=== PATIENT | female | born 1950 | race Caucasian/White ===

== ENCOUNTER 2018-09-25 13:36 | Emergency (ER) | payer OTHER, SELFPAY ==
--- NOTE | 2018-09-25 14:04 | EKG ---
Test Date: 2018-09-25 Test Time: 13:58:16 Improvement Auditor: SKYE MEASUREMENT RESULTS: Intervals: Rate: 96 RI: 214 QRSD: 104 QT: 402 QTc: 507 [place]: P: 73 RI: 214 QRS: 32 T: 76 INTERPRETIVE STATEMENTS: Sinus rhythm with 1st degree AV block Abnormal ECG No previous ECG available for comparison Electronically Signed On 09-25-18 14:03:47 CDT by Matthias Ambriz
--- NOTE | 2018-09-25 14:06 | RAD REPORT ---
EXAM DESCRIPTION: CT - Ct Stroke Brain Wo Cont - 09/25/2018 1:56 pm CLINICAL HISTORY: APHASIA COMPARISON: None TECHNIQUE: Computed axial tomography of the head was obtained. All CT scans are performed using dose optimization technique as appropriate and may include automated exposure control or mA/KV adjustment according to patient size. FINDINGS: An intracranial bleed is not seen . The ventricles are normal in caliber. No extra-axial fluid collection is noted. Fluid within the sinuses/ mastoids is not seen. IMPRESSION: No acute intracranial abnormality is seen. If patient's symptoms persist MRI of the bra in would be recommended. Keisha Wray of the emergency room of the emergency room was notified at 345 p.m. September 25, 2018
[2018-09-25 14:08] LABS: Absolute Lymphocytes (CBC) 2.5 K/uL (0.7-4.9); Absolute Monocytes 0.5 K/uL (0.1-1.3); Absolute Neutrophil 2.6 K/uL (1.8-8.0); Basophils % 0.3 % (0-1.3); Eosinophils % 0.6 % (0-4.4); Hematocrit 37.7 % (36.0-45.0); Lymphocytes % 44.4 % (15.3-44.8); MPV 7.8 fL (7.6-11.3); RBC Red Blood Cell Count 4.24 M/uL (3.86-4.86)
--- NOTE | 2018-09-25 14:12 | RAD REPORT ---
EXAM DESCRIPTION: Alda Angio09/25/2018 1:56 pm CLINICAL HISTORY: APHASIA COMPARISON: None TECHNIQUE: 50 cc Isovue 370 was administered intravenously. 3D MIP reconstruction performed All CT scans are performed using dose optimization technique as appropriate and may include automated exposure control or mA/KV adjustment according to patient size. FINDINGS: The right and left common carotid arteries unremarkable Calcification the right carotid bulb resulting in an approximately 45% stenosis. Calcification the left carotid bulb results in an approximately 30% stenosis Right and left internal carotid arteries unremarkable Vertebral arteries are codominant without an abnormality IMPRESSION: Mild stenosis involving the carotid bulbs. NASCET criteria used. Mild 0-49% stenosis Moderate 50-69% stenosis Severe 70-99% stenosis
--- NOTE | 2018-09-25 14:15 | RAD REPORT ---
EXAM DESCRIPTION: CTHead angio09/25/2018 1:56 pm CLINICAL HISTORY: APHASIA COMPARISON: None TECHNIQUE: CT angiogram of the head was obtained. 3D MIPS reconstruction performed. All CT scans are performed using dose optimization technique as appropriate and may include automated exposure control or mA/KV adjustment according to patient size. FINDINGS: The basilar, internal carotid, anterior cerebral, middle cerebral and posterior cerebral a rteries are normal caliber. An aneurysm is not seen. A significant stenosis is not noted. IMPRESSION: Unremarkable CT angiogram head.
[2018-09-25 14:18] LABS: Protime INR 0.98
[2018-09-25 14:25] LABS: ALT/SGPT 25 U/L (12-78); AST/SGOT 16 U/L (15-37); Albumin 3.4 g/dL (3.4-5.0); Alkaline Phosphatase 99 U/L (45-117); BUN Blood Urea Nitrogen 20 mg/dL (7-18); Bicarbonate 17 mmol/L (21-32); Bilirubin Total 0.7 mg/dL (0.2-1.0); Glucose Level 145 mg/dL (74-106); Potassium 3.1 mmol/L (3.5-5.1); Protein, Total 6.2 g/dL (6.4-8.2); Sodium Level 138 mmol/L (136-145); Troponin (Emerg Dept Use Only) < 0.02 ng/mL (0.0-0.045)
--- NOTE | 2018-09-25 14:25 | RAD REPORT ---
EXAM DESCRIPTION: Jessi Single View09/25/2018 2:08 pm CLINICAL HISTORY: Aphasia COMPARISON: none FINDINGS: The lungs appear clear of acute infiltrate. The heart is normal size IMPRESSION: No acute abnormalities displayed
[2018-09-25] MEDS ORDERED: ALTEPLASE 0 ML IV ONE (15:04)
[2018-09-25] MEDS ORDERED: IPRATROPIUM BROM 0.5MG/2.5ML ONE (15:34)
[2018-09-25] MEDS ORDERED: ALBUTEROL 2.5 MG/3 ML NEB SOL ONE (15:34)
[2018-09-25] MEDS ORDERED: DEXAMETHASONE 10 MG/ML VIAL ONE (15:34)
[2018-09-25 15:38] LABS: Barbiturates NEGATIVE (NEGATIVE); Benzodiazepines NEGATIVE (NEGATIVE); Cocaine NEGATIVE (NEGATIVE); METHAMPHETAM NEGATIVE (NEGATIVE); Methadone NEGATIVE (NEGATIVE); Opiates NEGATIVE (NEGATIVE); Phencyclidine NEGATIVE (NEGATIVE); THC Cannibis NEGATIVE (NEGATIVE)
[2018-09-25 15:42] LABS: Arterial Blood Carboxyhemoglob 0.9 % (0-1.5); Blood Gas Oxyhemoglobin 98.1 % (94-97); Blood O2 Saturation 99.8 % (92-98.5)
[2018-09-25 16:18] LABS: Urine Blood TRACE (NEG); Urine Glucose NEGATIVE (NEG); Urine Protein NEGATIVE (NEG); Urine Specific Gravity 1.015 (1.005-1.030)
--- NOTE | 2018-09-25 16:48 | EDPHYS ---
Physician Documentation [facility] Name: Janny Palencia Age: 68 yrs Sex: Female : 1950 Arrival Date: 09/25/2018 Time: 13:36 Bed 6 Private MD: ED Physician Jimmy Azul HPI: 09/25 14:59 This 68 yrs old Female presents to ER via EMS with complaints of S/S of ps1 Possible Stroke. 14:59 [place] and complained of headache, confusion, aphasia, and ps1 bilateral hemianopsia. Her LKN 1315. Not on blood thinners. Emergently brought to CT. Hx of HTN and HLD. . Historical: - Allergies: 13:40 Unable to obtain; aa5 - PMHx: 13:40 Hyperlipidemia; Hypertension; aa5 - PSHx: 13:40 Unable to obtain; aa5 - Immunization history:: Adult Immunizations unknown. - Social history:: Smoking status: unknown. - Ebola Screening: : Unable to complete screening because. ROS: 14:59 Unable to obtain ROS due to altered mental status. ps1 Exam: 14:59 Radiologist reports: negative CT, CTA head and neck of significant stenosis. ps1 14:59 ENT: Nares patent. No nasal discharge, no septal abnormalities noted. Tympanic membranes are normal and external auditory canals are clear. Oropharynx with no redness, swelling, or masses, exudates, or evidence of obstruction, uvula midline. Mucous membranes moist. Chest/axilla: Normal chest wall appearance and motion. Nontender with no deformity. No lesions are appreciated. Cardiovascular: Regular rate and rhythm. No gallops, murmurs, or rubs. Normal PMI, no JVD. No pulse deficits. 14:59 Abdomen/GI: Soft, non-tender, with normal bowel sounds. No distension or tympany. No guarding or rebound. No evidence of tenderness throughout. Skin: Warm, dry with normal turgor. Normal color with no rashes, no lesions, and no evidence of cellulitis. 14:59 Constitutional: The patient appears alert. 14:59 Head/face: 14:59 Eyes: Visual medellin: bilateral hemianopsia, does not respond to confrontation. . 14:59 Respiratory: mild respiratory distress is noted, Respirations: prolonged exhalation, that is moderate, Breath sounds: are clear throughout. 14:59 Neuro: Orientation: Not oriented to person, place, time, situation, Mentation: confused. Vital Signs: 13:55 Weight 72.57 kg; Height 5 ft. 6 in. (167.64 cm); hj 13:55 BP 154 / 74; Pulse 91; Resp 16 S; Pulse Ox 100% on R/A; aa5 13:58 Temp 98.6(A); aa5 14:15 BP 155 / 88; Pulse 93; Resp 24 S; Pulse Ox 100% on R/A; aa5 14:30 BP 161 / 77; Pulse 97; Resp 26 S; Pulse Ox 100% on R/A; aa5 14:59 BP 160 / 78; Pulse 93; Resp 30 S; Pulse Ox 100% on R/A; aa5 16:30 BP 176 / 80; Pulse 106; Resp 18 S; Temp 98.7(TE); Pulse Ox 100% on R/A; aa5 17:30 BP 161 / 63; Pulse 99; Resp 20 S; Pulse Ox 100% on R/A; aa5 18:30 BP 159 / 69; Pulse 97; Resp 18 S; Temp 98.0(TE); Pulse Ox 100% on R/A; Pain 0/10; aa5 13:55 Body Mass Index 25.82 (72.57 kg, 167.64 cm) NIH Stroke Scale Scores: 14:00 NIHSS Score: 10 aa5 17:29 NIHSS Score: 12 aa5 17:40 NIHSS Score: 0 aa5 18:00 NIHSS Score: 0 aa5 MDM: 13:55 Patient medically screened. ps1 09/25 13:38 Order name: Troponin (emerg Dept Use Only) ps1 09/25 13:38 Order name: UDS; Complete Time: 16:12 ps1 09/25 13:38 Order name: CBC with Diff; Complete Time: 14:12 09/25 13:38 Order name: Protime (+inr); Complete Time: 14:39 09/25 13:38 Order name: Ptt, Activated; Complete Time: 14:39 ps1 09/25 13:38 Order name: CMP; Complete Time: 14:39 ps1 09/25 13:38 Order name: CT Stroke Brain w/o Contrast; Complete Time: 14:12 09/25 13:46 Order name: Troponin (Emerg Dept Use Only); Complete Time: 14:39 EDMS /12 15:14 Order name: ABG; Complete Time: 16:12 ps1 /12 15:19 Order name: Urine Dipstick--Ancillary (enter results); Complete Time: 16:35 bd 09/25 16:12 Order name: Acetaminophen ps1 09/25 16:12 Order name: ETOH Level; Complete Time: 17:10 ps1 09/25 16:12 Order name: Salicylate; Complete Time: 18:03 ps1 /12 16:14 Order name: Acetaminophen Level; Complete Time: 18:03 EDMS 09/25 13:38 Order name: Stroke CXR 1 View; Complete Time: 14:39 ps1 / 13:38 Order name: EKG; Complete Time: 13:48 ps1 / 13:38 Order name: Accucheck; Complete Time: 14:02 ps1 09/25 13:38 Order name: Cardiac monitoring; Complete Time: 14:02 ps1 09/25 13:38 Order name: EKG - Nurse/Tech; Complete Time: 13:55 ps1 09/25 13:38 Order name: IV Saline Lock; Complete Time: 14:02 ps1 12 13:38 Order name: Labs collected and sent; Complete Time: 14:02 ps1 09/25 13:38 Order name: NPO; Complete Time: 13:55 ps1 /12 13:38 Order name: O2 Per Protocol; Complete Time: 13:55 ps1 /12 13:38 Order name: O2 Sat Monitoring; Complete Time: 13:55 ps1 12 13:38 Order name: Stroke Swallow Screen; Complete Time: 14:02 ps1 09/25 13:42 Order name: Neck Angio CT; Complete Time: 14:39 ps1 12 13:52 Order name: Head angio; Complete Time: 14:39 EDMS /12 14:08 Order name: Straight Cath - Urine; Complete Time: 14:10 aa5 Administered Medications: 15:18 Drug: DuoNeb (3:1) (2.5 mg - 0.5 mg) 3 ml Route: Nebulizer; aa5 15:30 Follow up: Response: No adverse reaction aa5 15:18 Drug: Decadron - Dexamethasone 10 mg Route: IVP; Site: right antecubital; aa5 15:30 Follow up: Response: No adverse reaction aa5 Point of Care Testing: Blood Glucose: 13:57 Blood Glucose: 167 mg/dL; aa5 Ranges: Critical Glucose Levels:Adult <50 mg/dl or >400 mg/dl <40 mg/dl or >180 mg/dl Disposition: 09/25/18 16:46 Transfer ordered to [facility]. Diagnosis are Encephalopathy, unspecified, Visual disturbances, Alkalosis. - Reason for transfer: Higher level of care. - Accepting physician is Alexander. - Condition is Critical. - Problem is new. - Symptoms are unchanged. NIH Stroke Scale - NIH Stroke Score Date: 09/25/2018 Time: 14:00 Total Score = 10 1a. Level of Consciousness (LOC) - 0(Alert) 1b. Level of Consciousness (LOC) (Year \T\ Age) - 2(Neither) 1c. LOC Commands (Open \T\ Closes Eyes/Service Center Supervisor) - 0(Both) 2. Best Gaze (Lateral Gaze Paresis) - 0(Normal) 3. Visual Field Loss - 3(Bilateral hemianopia) 4. Facial Palsy - 0(Normal) 5a. Left Arm: Motor (10-second hold) - 0(No drift) 5b. Right Arm: Motor (10-second hold) - 0(No drift) 6a. Left Leg: Motor (5-second hold - always test supine) - 0(No drift) 6b. Right Leg: Motor (5-second hold - always test supine) - 0(No drift) 7. Limb Ataxia (finger/nose \T\ heel/hoskins - test with eyes open) - 0(Absent) 8. Sensory Loss (pinprick arms/legs/face) - 0(Normal) 9. Best Language: Aphasia (description/naming/reading) - 3(Mute, global aphasia) 10. Dysarthria (speech clarity - read or repeat words) - 2(Severe) 11. Extinction and Inattention (visual/tactile/auditory/spatial/personal) - 0(No abnormality) Initials: aa5 NIH Stroke Scale - NIH Stroke Score Date: 09/25/2018 Time: 17:29 Total Score = 12 1a. Level of Consciousness (LOC) - 0(Alert) 1b. Level of Consciousness (LOC) (Year \T\ Age) - 2(Neither) 1c. LOC Commands (Open \T\ Closes Eyes/Service Center Supervisor) - 2(Neither) 2. Best Gaze (Lateral Gaze Paresis) - 0(Normal) 3. Visual Field Loss - 3(Bilateral hemianopia) 4. Facial Palsy - 0(Normal) 5a. Left Arm: Motor (10-second hold) - 0(No drift) 5b. Right Arm: Motor (10-second hold) - 0(No drift) 6a. Left Leg: Motor (5-second hold - always test supine) - 0(No drift) 6b. Right Leg: Motor (5-second hold - always test supine) - 0(No drift) 7. Limb Ataxia (finger/nose \T\ heel/hoskins - test with eyes open) - 0(Absent) 8. Sensory Loss (pinprick arms/legs/face) - 0(Normal) 9. Best Language: Aphasia (description/naming/reading) - 3(Mute, global aphasia) 10. Dysarthria (speech clarity - read or repeat words) - 2(Severe) 11. Extinction and Inattention (visual/tactile/auditory/spatial/personal) - 0(No abnormality) Initials: aa5 NIH Stroke Scale - NIH Stroke Score Date: 09/25/2018 Time: 17:40 Total Score = 0 1a. Level of Consciousness (LOC) - 0(Alert) 1b. Level of Consciousness (LOC) (Year \T\ Age) - 0(Both) 1c. LOC Commands (Open \T\ Closes Eyes/Service Center Supervisor) - 0(Both) 2. Best Gaze (Lateral Gaze Paresis) - 0(Normal) 3. Visual Field Loss - 0(No visual loss) 4. Facial Palsy - 0(Normal) 5a. Left Arm: Motor (10-second hold) - 0(No drift) 5b. Right Arm: Motor (10-second hold) - 0(No drift) 6a. Left Leg: Motor (5-second hold - always test supine) - 0(No drift) 6b. Right Leg: Motor (5-second hold - always test supine) - 0(No drift) 7. Limb Ataxia (finger/nose \T\ heel/hoskins - test with eyes open) - 0(Absent) 8. Sensory Loss (pinprick arms/legs/face) - 0(Normal) 9. Best Language: Aphasia (description/naming/reading) - 0(No aphasia) 10. Dysarthria (speech clarity - read or repeat words) - 0(Normal) 11. Extinction and Inattention (visual/tactile/auditory/spatial/personal) - 0(No abnormality) Initials: aa5 NIH Stroke Scale - NIH Stroke Score Date: 09/25/2018 Time: 18:00 Total Score = 0 1a. Level of Consciousness (LOC) - 0(Alert) 1b. Level of Consciousness (LOC) (Year \T\ Age) - 0(Both) 1c. LOC Commands (Open \T\ Closes Eyes/Service Center Supervisor) - 0(Both) 2. Best Gaze (Lateral Gaze Paresis) - 0(Normal) 3. Visual Field Loss - 0(No visual loss) 4. Facial Palsy - 0(Normal) 5a. Left Arm: Motor (10-second hold) - 0(No drift) 5b. Right Arm: Motor (10-second hold) - 0(No drift) 6a. Left Leg: Motor (5-second hold - always test supine) - 0(No drift) 6b. Right Leg: Motor (5-second hold - always test supine) - 0(No drift) 7. Limb Ataxia (finger/nose \T\ heel/hoskins - test with eyes open) - 0(Absent) 8. Sensory Loss (pinprick arms/legs/face) - 0(Normal) 9. Best Language: Aphasia (description/naming/reading) - 0(No aphasia) 10. Dysarthria (speech clarity - read or repeat words) - 0(Normal) 11. Extinction and Inattention (visual/tactile/auditory/spatial/personal) - 0(No abnormality) Initials: aa5 Signatures: Dispatcher [employer] [facility] Sendy Smith RN RN aa5 Jimmy Azul MD MD ps1 Corrections: (The following items were deleted from the chart) 19:15 16:46 09/25/2018 16:46 Transfer ordered to [facility]. Diagnosis is aa5 Encephalopathy, unspecified; Visual disturbances; Alkalosis. Reason for transfer: Higher level of care. Accepting physician is [place]. Condition is Critical. Problem is new. Symptoms are unchanged. ps1
--- NOTE | 2018-09-25 16:48 | ER ---
Nurse's Notes [facility] Name: Janny Palencia Age: 68 yrs Sex: Female : 1950 Arrival Date: 09/25/2018 Time: 13:36 Bed 6 Private MD: Diagnosis: Encephalopathy, unspecified;Visual disturbances;Alkalosis Presentation: 09/25 13:36 Presenting complaint: EMS states: she was walking 20 mins ASSESSOR, when suddenly she lost hj her vision of both here eyes and become altered; pt is A\\T\\O x 1 on triage holding a wet piece of paper not responding to questions; BGL- 121; BP 190/70; tachy and hyperventilating;. Transition of care: patient was not received from another setting of care. An acute neurological deficit is present. Onset of symptoms was September 25, 2018. Risk Assessment: Do you want to hurt yourself or someone else? Patient reports no desire to harm self or others. Initial Sepsis Screen: Does the patient meet any 2 criteria? No. Patient's initial sepsis screen is negative. Does the patient have a suspected source of infection?. Care prior to arrival: IV initiated. 18 GA, in the right antecubital area, Glucose check: 121. 13:36 Method Of Arrival: EMS: [facility] 13:36 Acuity: PINA 2 hj Triage Assessment: 14:00 The onset of the patients symptoms was September 25, 2018 at 13:15. aa5 Stroke Activation: Symptom onset < 3 hours Physician: Stroke Attending; Name: ; Notified At: ; Arrived At: Physician: Chief Stroke Resident; Name: ; Notified At: ; Arrived At: Physician: Stroke Resident; Name: ; Notified At: ; Arrived At: Physician: ED Attending; Name: ; Notified At: ; Arrived At: Physician: ED Resident; Name: ; Notified At: ; Arrived At: Historical: - Allergies: 13:40 Unable to obtain; aa5 - PMHx: 13:40 Hyperlipidemia; Hypertension; aa5 - PSHx: 13:40 Unable to obtain; aa5 - Immunization history:: Adult Immunizations unknown. - Social history:: Smoking status: unknown. - Ebola Screening: : Unable to complete screening because. Screenin:00 Abuse screen: unable to complete. Nutritional screening: No deficits noted. aa5 Tuberculosis screening: unable to complete. 17:00 Fall Risk IV access (20 points). Mental Status- Overestimates/Forgets Limitations (15 aa5 pts.). Total Torres Fall Scale indicates Low Risk Score (25-44 pts). Fall prevention measures have been instituted. Side Rails Up X 2 Placed close to Nursing Station. Assessment: 13:38 Reassessment: Pt taken to CT via stretcher, accompanied by BLAINE Daniel. aa5 13:54 Reassessment: Pt back from CT scan via stretcher . aa5 13:54 VAN Scoring: Arm Drift: Patients demonstrates NO arm weakness. Patient is VAN Negative. aa5 13:54 General: Behavior is calm, cooperative. Pain: Unable to use pain scale. Does not appear aa5 to understand pain scale. Neuro: Level of Consciousness is awake, Pt is mute at this time, unable to answer questions, unable to follow-commands. Pupils are 4mm in size, found, and reactive to light. . Cardiovascular: Heart tones S1 S2 present Rhythm is regular. Respiratory: Airway is patent Respiratory effort is even, unlabored, Respiratory pattern is regular, symmetrical. GI: Abdomen is round Bowel sounds present X 4 quads. Abd is soft and non tender X 4 quads. : No signs and/or symptoms were reported regarding the genitourinary system. EENT: No signs and/or symptoms were reported regarding the EENT system. Derm: Skin is pink, warm \\T\\ dry. Musculoskeletal: Pt unable to follow commands, pt noted to be able to move all 4 extremities. 13:55 Patient has been NPO before screening. The patient is not alert and/or unable to follow aa5 commands. Bedside swallow screen discontinued. Patient kept NPO until cleared by Speech Therapy or Physician. Provider notified of bedside swallow screening results: Jimmy Azul MD. 13:56 Reassessment: Pt back from CT VIA stretcher. 13:56 Reassessment: Dr. Azul awaiting results of CT Angio. Two friends remain at bedside. ss 13:57 Reassessment: EKG completed by obstetrics tech . aa5 14:00 Reassessment: Pt's friend at bedside, pt's friend attempting to contact pt's family aa5 (brother and [id number]). Pt is not and has no children as reported by friend. . 14:00 Neuro: Level of Consciousness is awake, Pt is able to follow some commands. Pt remains aa5 mute at this time. . Stitch Bonding Machine Tender are weak on left Weakness in left leg(s) Facial symmetry appears normal. Respiratory: Airway is patent Respiratory effort is even, unlabored, Respiratory pattern is regular, symmetrical. Derm: Skin is pink, warm \\T\\ dry. 14:45 Reassessment: Dr. Azul consulting with Dr. Moreno (Neurologist) at this time . aa5 14:55 Reassessment: T-PA will not be administered per MD. aa5 15:00 Neuro: Level of Consciousness is awake, Pt is not following commands, pt mute at this aa5 time. . Cardiovascular: Rhythm is sinus rhythm. Respiratory: Airway is patent Respiratory effort is even, unlabored, Respiratory pattern is regular, symmetrical. Derm: Skin is pink, warm \\T\\ dry. 15:48 Reassessment: ABG completed by RT . aa5 15:55 Neuro: Level of Consciousness is awake, Pt mute at this time . Stitch Bonding Machine Tender are weak aa5 bilaterally Moves all extremities. Facial symmetry appears normal, Pupils are PERRLA. Cardiovascular: Rhythm is sinus rhythm. Respiratory: Airway is patent Respiratory effort is even, unlabored, Respiratory pattern is regular, symmetrical. Derm: Skin is pink, warm \\T\\ dry. 16:30 Neuro: Level of Consciousness is awake, Pt able to follow commands. Pt mute at this aa5 time . Stitch Bonding Machine Tender are equal bilaterally Moves all extremities. Facial symmetry appears normal, Pupils are PERRLA. Respiratory: Airway is patent Respiratory effort is even, unlabored, Respiratory pattern is regular, symmetrical. Derm: Skin is pink, warm \\T\\ dry. 17:35 Reassessment: Report given to BLAINE Roman at [facility] Neuro ICU. Awaiting EMS for transport. aa5 . 17:40 General: Appears comfortable, Behavior is calm, cooperative. Pain: Denies pain. Neuro: aa5 Level of Consciousness is awake, alert, obeys commands, Oriented to person, place, time, situation, Stitch Bonding Machine Tender are equal bilaterally Moves all extremities. Speech is normal, Facial symmetry appears normal, Pupils are PERRLA. Cardiovascular: Heart tones S1 S2 present Rhythm is regular. Respiratory: Airway is patent Respiratory effort is even, unlabored, Respiratory pattern is regular, symmetrical. Derm: Skin is pink, warm \\T\\ dry. 17:40 Reassessment: Pt's family states "she just started talking as soon as you walked in" . aa5 18:00 Reassessment: Patient is alert, oriented x 3, equal unlabored respirations, skin aa5 warm/dry/pink. 18:15 Reassessment: Pt's clothing, car keys, and silver watch was given to pt's family per aa5 pt's request. . 18:30 Neuro: Level of Consciousness is awake, alert, obeys commands, Oriented to person, aa5 place, time, situation, Stitch Bonding Machine Tender are equal bilaterally Moves all extremities. Speech is normal, Facial symmetry appears normal, Pupils are PERRLA. Respiratory: Airway is patent Respiratory effort is even, unlabored, Respiratory pattern is regular, symmetrical. Derm: Skin is pink, warm \\T\\ dry. 18:30 Reassessment: Awaiting EMS for transfer. . aa5 Vital Signs: 13:55 Weight 72.57 kg; Height 5 ft. 6 in. (167.64 cm); 13:55 BP 154 / 74; Pulse 91; Resp 16 S; Pulse Ox 100% on R/A; aa5 13:58 Temp 98.6(A); aa5 14:15 BP 155 / 88; Pulse 93; Resp 24 S; Pulse Ox 100% on R/A; aa5 14:30 BP 161 / 77; Pulse 97; Resp 26 S; Pulse Ox 100% on R/A; aa5 14:59 BP 160 / 78; Pulse 93; Resp 30 S; Pulse Ox 100% on R/A; aa5 16:30 BP 176 / 80; Pulse 106; Resp 18 S; Temp 98.7(TE); Pulse Ox 100% on R/A; aa5 17:30 BP 161 / 63; Pulse 99; Resp 20 S; Pulse Ox 100% on R/A; aa5 18:30 BP 159 / 69; Pulse 97; Resp 18 S; Temp 98.0(TE); Pulse Ox 100% on R/A; Pain 0/10; aa5 13:55 Body Mass Index 25.82 (72.57 kg, 167.64 cm) NIH Stroke Scale Scores: 14:00 NIHSS Score: 10 aa5 17:29 NIHSS Score: 12 aa5 17:40 NIHSS Score: 0 aa5 18:00 NIHSS Score: 0 aa5 ED Course: 13:36 Patient arrived in ED. aa5 13:36 Arm band placed on. hj 13:37 Jimmy Azul MD is Attending Physician. ps1 13:38 Sendy Smith, RN is Primary Nurse. aa5 13:54 Patient has correct armband on for positive identification. Placed in gown. Bed in low aa5 position. Side rails up X2. 13:55 Triage completed. hj 13:57 Maintain EMS IV. Dressing intact. Good blood return noted. Site clean \\T\\ dry. Gauge \\T\\ ss site: 18 gauge in R AC. IV is patent, is intact, with good blood return, Flushed right antecubital saline lock with 5 ml normal saline. 13:58 CT Stroke Brain w/o Contrast In Process Unspecified. EDMS 13:[address] In Process Unspecified. EDMS 13:58 Head angio In Process Unspecified. EDMS 14:01 EKG done, by obstetrics tech. reviewed by Jimmy Azul MD. sm3 14:09 Stroke CXR 1 View In Process Unspecified. EDMS 14:10 Straight cath inserted, using sterile technique, 16 Fr. Specimen obtained. Returned aa5 60cc returned. Patient tolerated well. 14:10 Inserted saline lock: 20 gauge in left forearm, using aseptic technique. ss 14:10 Patient maintains SpO2 saturation greater than 95% on room air. ss 18:[address] [facility], pt denied due to no icu beds. pt accepted to [facility]. bd 19:00 Patient transferred, IV remains in place. aa5 19:00 No provider procedures requiring assistance completed. aa5 Administered Medications: 15:18 Drug: DuoNeb (3:1) (2.5 mg - 0.5 mg) 3 ml Route: Nebulizer; aa5 15:30 Follow up: Response: No adverse reaction aa5 15:18 Drug: Decadron - Dexamethasone 10 mg Route: IVP; Site: right antecubital; aa5 15:30 Follow up: Response: No adverse reaction aa5 Point of Care Testing: Blood Glucose: 13:57 Blood Glucose: 167 mg/dL; aa5 Ranges: Outcome: 16:46 ER care complete, transfer ordered by . ps1 19:05 Transferred by ground EMS to [facility], Transfer form aa5 completed. X-rays sent w/ patient. Note: Report given to [facility] 19:05 Condition: stable 19:05 Discharge instructions given to patient, family, Instructed on the need for transfer, Demonstrated understanding of instructions. 19:15 Patient left the ED. aa5 NIH Stroke Scale - NIH Stroke Score Date: 09/25/2018 Time: 14:00 Total Score = 10 1a. Level of Consciousness (LOC) - 0(Alert) 1b. Level of Consciousness (LOC) (Year \\T\\ Age) - 2(Neither) 1c. LOC Commands (Open \\T\\ Closes Eyes/Manager Target) - 0(Both) 2. Best Gaze (Lateral Gaze Paresis) - 0(Normal) 3. Visual Field Loss - 3(Bilateral hemianopia) 4. Facial Palsy - 0(Normal) 5a. Left Arm: Motor (10-second hold) - 0(No drift) 5b. Right Arm: Motor (10-second hold) - 0(No drift) 6a. Left Leg: Motor (5-second hold - always test supine) - 0(No drift) 6b. Right Leg: Motor (5-second hold - always test supine) - 0(No drift) 7. Limb Ataxia (finger/nose \\T\\ heel/hoskins - test with eyes open) - 0(Absent) 8. Sensory Loss (pinprick arms/legs/face) - 0(Normal) 9. Best Language: Aphasia (description/naming/reading) - 3(Mute, global aphasia) 10. Dysarthria (speech clarity - read or repeat words) - 2(Severe) 11. Extinction and Inattention (visual/tactile/auditory/spatial/personal) - 0(No abnormality) Initials: aa5 NIH Stroke Scale - NIH Stroke Score Date: 09/25/2018 Time: 17:29 Total Score = 12 1a. Level of Consciousness (LOC) - 0(Alert) 1b. Level of Consciousness (LOC) (Year \\T\\ Age) - 2(Neither) 1c. LOC Commands (Open \\T\\ Closes Eyes/Manager Target) - 2(Neither) 2. Best Gaze (Lateral Gaze Paresis) - 0(Normal) 3. Visual Field Loss - 3(Bilateral hemianopia) 4. Facial Palsy - 0(Normal) 5a. Left Arm: Motor (10-second hold) - 0(No drift) 5b. Right Arm: Motor (10-second hold) - 0(No drift) 6a. Left Leg: Motor (5-second hold - always test supine) - 0(No drift) 6b. Right Leg: Motor (5-second hold - always test supine) - 0(No drift) 7. Limb Ataxia (finger/nose \\T\\ heel/hoskins - test with eyes open) - 0(Absent) 8. Sensory Loss (pinprick arms/legs/face) - 0(Normal) 9. Best Language: Aphasia (description/naming/reading) - 3(Mute, global aphasia) 10. Dysarthria (speech clarity - read or repeat words) - 2(Severe) 11. Extinction and Inattention (visual/tactile/auditory/spatial/personal) - 0(No abnormality) Initials: aa5 NIH Stroke Scale - NIH Stroke Score Date: 09/25/2018 Time: 17:40 Total Score = 0 1a. Level of Consciousness (LOC) - 0(Alert) 1b. Level of Consciousness (LOC) (Year \\T\\ Age) - 0(Both) 1c. LOC Commands (Open \\T\\ Closes Eyes/Manager Target) - 0(Both) 2. Best Gaze (Lateral Gaze Paresis) - 0(Normal) 3. Visual Field Loss - 0(No visual loss) 4. Facial Palsy - 0(Normal) 5a. Left Arm: Motor (10-second hold) - 0(No drift) 5b. Right Arm: Motor (10-second hold) - 0(No drift) 6a. Left Leg: Motor (5-second hold - always test supine) - 0(No drift) 6b. Right Leg: Motor (5-second hold - always test supine) - 0(No drift) 7. Limb Ataxia (finger/nose \\T\\ heel/hoskins - test with eyes open) - 0(Absent) 8. Sensory Loss (pinprick arms/legs/face) - 0(Normal) 9. Best Language: Aphasia (description/naming/reading) - 0(No aphasia) 10. Dysarthria (speech clarity - read or repeat words) - 0(Normal) 11. Extinction and Inattention (visual/tactile/auditory/spatial/personal) - 0(No abnormality) Initials: aa5 NIH Stroke Scale - NIH Stroke Score Date: 09/25/2018 Time: 18:00 Total Score = 0 1a. Level of Consciousness (LOC) - 0(Alert) 1b. Level of Consciousness (LOC) (Year \\T\\ Age) - 0(Both) 1c. LOC Commands (Open \\T\\ Closes Eyes/Manager Target) - 0(Both) 2. Best Gaze (Lateral Gaze Paresis) - 0(Normal) 3. Visual Field Loss - 0(No visual loss) 4. Facial Palsy - 0(Normal) 5a. Left Arm: Motor (10-second hold) - 0(No drift) 5b. Right Arm: Motor (10-second hold) - 0(No drift) 6a. Left Leg: Motor (5-second hold - always test supine) - 0(No drift) 6b. Right Leg: Motor (5-second hold - always test supine) - 0(No drift) 7. Limb Ataxia (finger/nose \\T\\ heel/hoskins - test with eyes open) - 0(Absent) 8. Sensory Loss (pinprick arms/legs/face) - 0(Normal) 9. Best Language: Aphasia (description/naming/reading) - 0(No aphasia) 10. Dysarthria (speech clarity - read or repeat words) - 0(Normal) 11. Extinction and Inattention (visual/tactile/auditory/spatial/personal) - 0(No abnormality) Initials: aa5 Signatures: Dispatcher [employer] EDMS Zakia Song Audri, RN RN aa5 Mary Ellen Mccarthy RN RN ss Joaquin, Henry, RN RN Jimmy Azul MD MD [id number] Moni Cook 3 Corrections: (The following items were deleted from the chart) 14:12 13:45 Reassessment: ot wheeled to CT; aa5 14:15 13:45 Presenting complaint: EMS states: she was walking 20 mins ASSESSOR, when suddenly she lost her vision of both here eyes and become altered; pt is A\\T\\O x 1 on triage holding a wet piece of paper not responding to questions; BGL- 121; BP 190/70; tachy and hyperventilating; 14:15 13:45 Transition of care: patient was not received from another setting of [facility]. 14:15 13:45 An acute neurological deficit is present. [facility] 14:15 13:45 Onset of symptoms was September 25, 2018 [facility] 14:15 13:45 Risk Assessment: Do you want to hurt yourself or someone else? Patient reports no desire to harm self or others. 14: 13:45 Initial Sepsis Screen: Does the patient meet any 2 criteria? No. hj Patient's initial sepsis screen is negative. Does the patient have a suspected source of infection? 14: 13:45 Care prior to arrival: IV initiated. 18 GA, in the right antecubital area, Glucose check: 121 14: 13:45 Method Of Arrival: EMS: [facility] 14: 13:45 Stroke Activation: Symptom onset < 3 hours [facility] 14: 13:45 Acuity: PINA 2 [facility] 14: 13:36 Arm band placed on aa5 14:57 14:00 NIHSS Score: 7 aa5 aa5 14:57 14:51 NIHSS Score: 10 aa5 aa5 17:30 13:54 NIHSS Score: 9 aa5 aa5 17:30 14:51 NIHSS Score: 12 aa5 aa5
== END 2018-09-25 19:15 | disposition short-term general hospital (02) ==
LOC: ER 13:36
DX: G93.40 Encephalopathy, unspecified (principal); E87.3 Alkalosis; H53.9 Unspecified visual disturbance; I10 Essential (primary) hypertension; E78.5 Hyperlipidemia, unspecified
CPT/HCPCS: 93005; 85025; 36415; 80320; 80329 ×2; 85610; 80307 ×8; 85730; 81003; 84484; 80053; 70496; 70498; 70450; 71045; 82805; Q9967; J1100; 51702; 82962; 94640; 96374; 99285; J2997